=== PATIENT | male | born 1960 | race African-American/Black ===

== ENCOUNTER 2023-03-18 04:09 | Day surgery (SDC) | payer OTHER ==
[2023-03-14 14:21] VITALS: BMI 30.4
[2023-03-18] MEDS ORDERED: ONDANSETRON 4 MG/2 ML VIAL ONE (12:35)
[2023-03-18] MEDS ORDERED: MIDAZOLAM HCL 2 MG/2 ML SINGLE DOSE VIAL ONE (12:35)
[2023-03-18 13:31] VITALS: RESP 18
[2023-03-18 14:41] VITALS: BP 132/77; PULSE 64; TEMP 97.1
== END 2023-03-18 14:10 | disposition home or self-care (01) ==
LOC: JASU-SURG 04:09
PROVIDERS: ATTEND Urology
PROC: 0TF3XZZ Fragmentation in Right Kidney Pelvis, External Approach (ICD-10-PCS; principal; 2023-03-18 12:00)
DX: N20.0 Calculus of kidney (principal)
CPT/HCPCS: 82962